=== PATIENT | male | born 1950 ===

== ENCOUNTER 2017-05-28 15:58 | Inpatient (IN) | payer MEDICARE, OTHER ==
[~2017-05-28] VITALS: Ht 172.7 cm; Wt 84.0 kg
[2017-05-28] MEDS ORDERED: RANI150C4 PO (16:24)
[2017-05-28] MEDS ORDERED: RISP1TAB27 PO (16:24)
[2017-05-28] MEDS ORDERED: BENZ0.5T3 PO (16:24)
[2017-05-28] MEDS ORDERED: ACET-2605 PO (16:24)
[2017-05-28] MEDS ORDERED: LACO100T2 PO (16:24)
[2017-05-28] MEDS ORDERED: GABA-532 PO (16:24)
[2017-05-28] MEDS ORDERED: LEVE500T20 PO (16:24)
[2017-05-28] MEDS ORDERED: TAMS0.4C34 PO (16:24)
[2017-05-28] MEDS ORDERED: ATEN50TA PO (16:24)
[2017-05-28] MEDS ORDERED: OMEP20TA5 PO (16:24)
[2017-05-28] MEDS ORDERED: DIPH1TAB PO (16:24)
[2017-05-28] MEDS ORDERED: DICY10CA59 PO (16:24)
[2017-05-28] MEDS ORDERED: BETH25TA PO (16:24)
--- NOTE | 2017-05-28 16:50 | NUR ---
Pt off the unit in stable condition to radiology and return to unit in stable condition as well.
--- NOTE | 2017-05-28 17:00 | NUR ---
Received Alert and confused to place and events at this time. 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 eye.
[2017-05-28 17:20] LABS: BASOPHILS # (AUTO) 0.1 K/uL (0.0-8.0); BASOPHILS % (AUTO) 0.5 % (0.0-2.0); EOSINOPHILS # (AUTO) 0.3 K/uL (0.0-0.7); EOSINOPHILS % (AUTO) 2.6 % (0.0-7.0); HEMATOCRIT 43.5 % (40-50); HEMOGLOBIN 14.9 G/DL (14.0-18.0); LYMPHOCYTES # (AUTO) 2.2 K/UL (0.8-4.8); LYMPHOCYTES % (AUTO) 21.2 % (20.5-51.5); MEAN CORPUSCULAR HEMOGLOBIN 31.7 UUG (27.0-31.0); MEAN CORPUSCULAR HGB CONC 34 g/dL (32.0-37.0); MEAN CORPUSCULAR VOLUME 92.5 FL (82.0-92.0); MONOCYTES # (AUTO) 1.4 K/UL (0.1-1.30); MONOCYTES % (AUTO) 13.3 % (0.0-11.0); NEUTROPHILS # (AUTO) 6.4 K/UL (1.8-8.9); NEUTROPHILS % (AUTO) 62.4 % (38.5-71.5); PLATELET COUNT (AUTO) 328 K/UL (150-450); WHITE BLOOD COUNT (AUTO) 10.4 K/UL (4.0-11.2)
[2017-05-28 17:22] LABS: CARBON DIOXIDE 28 mmol/L (21-32); CHLORIDE 94 mmol/L (98-107); CREATININE 0.7 mg/dL (0.6-1.3); GLUCOSE 102 mg/dL (74-106); POTASSIUM 3.8 mmol/L (3.5-5.1); UREA NITROGEN, BLOOD 8 mg/dL (7-18)
[2017-05-28 17:34] LABS: ETHANOL < 3 MG/DL (0-0)
[2017-05-28 17:37] LABS: ALANINE AMINOTRANSFERASE 32 U/L (16-63); ALKALINE PHOSPHATASE 91 U/L (50-136); ASPARTATE AMINOTRANSFERASE 18 U/L (15-37); BILIRUBIN,DIRECT 0.2 mg/dL (0.0-0.2); BILIRUBIN,TOTAL 0.6 mg/dL (0.2-1.0); TOTAL PROTEIN, SERUM 8.2 g/dL (6.4-8.2)
[2017-05-28 17:40] LABS: ACETAMINOPHEN < 2.0 ug/mL (10-30)
[2017-05-28 18:00] LABS: THYROID STIMULATING HORMONE 1.146 mIU/mL (0.358-3.740)
--- NOTE | 2017-05-28 18:40 | NUR ---
Dr. Deo Felipe returned ER MD call and admit orders received at this time to tele.
--- NOTE | 2017-05-28 19:53 | NUR ---
Pt. admitted to TELE, under care of Dr. ROTH Belongs List completed
--- NOTE | 2017-05-28 19:53 | NUR ---
Levar kaur in EDM - 05/28/17 at 2000 by XAVI Patient discharged to home in stable conditon. Written and verbal after care instructions given. Patient verbalizes understanding of instructions.
--- NOTE | 2017-05-28 20:00 | NUR ---
RECEIVED PATIENT FROM ER VIA GURNEY. PT IS ALERT, RESPONSIVE. ADMITTED TO TELE UNDER THE CARE OF DR. FORMAN. BELONGING LIST DONE, ADMISSION PROCESS AND CARE PLAN INITIATED. WILL NOTIFY MD FOR NEW ADMIT ORDERS.
[2017-05-28] MEDS ORDERED: ACETAMINOPHEN ES 500 MG TABLET PO PRN (21:15)
[2017-05-28] MEDS ORDERED: ACETAMINOPHEN ES 500 MG TABLET ONE (21:31)
[2017-05-28] MEDS ORDERED: GABAPENTIN 100 MG CAPSULE ONE (21:32)
[2017-05-28] MEDS ORDERED: LEVETIRACETAM 500 MG TABLET ONE (21:32)
[2017-05-28] MEDS: risperiDONE 1 MG TABLET PO SCH (21:33)
[2017-05-28] MEDS ORDERED: risperiDONE 1 MG TABLET ONE (21:33)
[2017-05-28] MEDS: GABAPENTIN 100 MG CAPSULE PO SCH (21:34)
[2017-05-28] MEDS: LEVETIRACETAM 500 MG TABLET PO SCH (21:34)
[2017-05-28 23:42] VITALS: BP 147/93
[2017-05-29 03:48] LABS: *BILIRUBIN,URIN NEGATIVE (NEGATIVE); *BLOOD, URINE NEGATIVE (NEGATIVE); *CLARITY,URINE CLEAR (CLEAR); *COLOR,URINE YELLOW (YELLOW); *KETONES,URINE NEGATIVE (NEGATIVE); *PROTEIN,URINE NEGATIVE (NEGATIVE); *UROBILINOGEN,URINE 0.2 E.U./dl (NORMAL); LEUKOCYTE ESTERASE ,URINE NEGATIVE (NEGATIVE); NITRITE, URINE NEGATIVE (NEGATIVE); UGLUCOSE NEGATIVE (NEGATIVE)
[2017-05-29 03:49] VITALS: BP 133/97
[2017-05-29 04:07] LABS: BACTERIA,URINE NONE SEEN /HPF (NONE SEEN); RBC,URINE NONE SEEN /HPF (0-3); SQUAMOUS EPITHELIAL CELL,UR NONE SEEN /HPF (NONE SEEN); WBC,URINE NONE SEEN /HPF (0-3)
[2017-05-29 04:12] LABS: *AMPHETAMINE, URINE NEGATIVE (NEGATIVE); *BARBITURATE, URINE NEGATIVE (NEGATIVE); *CANNABINOID, URINE NEGATIVE (NEGATIVE); *COCCAINE, URINE NEGATIVE (NEGATIVE); *OPIATE, URINE NEGATIVE (NEGATIVE); *PHENCYCLIDINE SCREEN,URINE NEGATIVE (NEGATIVE)
[2017-05-29 05:43] VITALS: BP 133/97
--- NOTE | 2017-05-29 06:17 | NUR ---
PATIENT SLEPT INTERMITTENTLY, IN NO ACUTE DISTRESS. PATIENT ABLE TO REMEMBER INSTRUCTION ON THE USE OF URINAL FOR URINE SPECIMEN. URINE SPECIMEN SENT TO LAB. ALL NEEDS MET, CALL LIGHT WITHIN REACH, BED ALARM ON. WILL CONTINUE TO MONITOR. Addendum: 05/29/17 at 0731 by ELIAS TORRES RN ADD: PT ON SEIZURE PRECAUTION, SIDE RAILS PADDED, SUCTION EQUIPMENT SET UP IN THE ROOM. PT IS ON [employer].
[2017-05-29 06:34] LABS: CARBON DIOXIDE 27 mmol/L (21-32); CHLORIDE 100 mmol/L (98-107); CREATININE 0.6 mg/dL (0.6-1.3); GLUCOSE 91 mg/dL (74-106); MAGNESIUM 1.8 mg/dL (1.8-2.4); PHOSPHOROUS 3.7 mg/dL (2.5-4.9); POTASSIUM 3.6 mmol/L (3.5-5.1); UREA NITROGEN, BLOOD 8 mg/dL (7-18)
[2017-05-29 06:54] LABS: BASOPHILS % (AUTO) 0.5 % (0.0-2.0); EOSINOPHILS # (AUTO) 0.3 K/uL (0.0-0.7); EOSINOPHILS % (AUTO) 3.8 % (0.0-7.0); HEMATOCRIT 39.1 % (36.7-47.1); HEMOGLOBIN 13.7 g/dL (12.5-16.3); LYMPHOCYTES # (AUTO) 2.4 K/uL (20.0-40.0); LYMPHOCYTES % (AUTO) 28.8 % (20.5-51.5); MEAN CORPUSCULAR HEMOGLOBIN 32.8 uug (23.8-33.4); MEAN CORPUSCULAR HGB CONC 35 g/dL (32.5-36.3); MEAN CORPUSCULAR VOLUME 93.9 fL (73.0-96.2); MONOCYTES % (AUTO) 12.3 % (0.0-11.0); NEUTROPHILS # (AUTO) 4.5 K/uL (1.8-8.9); NEUTROPHILS % (AUTO) 54.6 % (38.5-71.5); PLATELET COUNT (AUTO) 256 K/uL (152-348); RED BLOOD CELL COUNT(AUTO) 4.17 MIL/uL (4.06-5.63); WHITE BLOOD COUNT (AUTO) 8.3 K/uL (3.6-10.2)
--- NOTE | 2017-05-29 07:15 | NUR ---
received report from [facility] shift lead nurse, patient in bed awake and appears to be anxious as evidenced by frequent questions and repetitive reports of his Doctor's information including phone number.
[2017-05-29] MEDS ORDERED: ACETAMINOPHEN ES 500 MG TABLET PO PRN (07:30)
[2017-05-29] MEDS ORDERED: DICYCLOMINE HCL 10 MG CAPSULE PO PRN (07:30)
[2017-05-29] MEDS ORDERED: DIPHENOXYLATE HCL/ATROP SULF TABLET PO PRN (07:30)
[2017-05-29] MEDS ORDERED: HOME MED MISCELLANEOUS XX SCH ×2 (07:30)
[2017-05-29] MEDS: PANTOPRAZOLE SODIUM 40 MG TABLET.DR PO SCH (07:45)
[2017-05-29] MEDS: GABAPENTIN 100 MG CAPSULE PO SCH ×2 (08:25→17:03)
[2017-05-29] MEDS: TAMSULOSIN HCL 0.4 MG CAP.SR.24H PO SCH (08:25)
[2017-05-29] MEDS: ATENOLOL 50 MG TABLET PO SCH (08:26)
[2017-05-29] MEDS: BETHANECHOL CHLORIDE 25 MG TABLET PO SCH ×3 (08:26→17:03)
[2017-05-29] MEDS: LACOSAMIDE 50 MG TABLET PO SCH ×2 (08:27→20:03)
[2017-05-29] MEDS: LEVETIRACETAM 500 MG TABLET PO SCH ×2 (08:27→20:03)
[2017-05-29] MEDS: Z GUARD REMEDY PASTE 57 GM TUBE TOP SCH ×2 (08:27→20:04)
[2017-05-29] MEDS ORDERED: GABAPENTIN 100 MG CAPSULE PO SCH (09:00)
[2017-05-29] MEDS ORDERED: LEVETIRACETAM 500 MG TABLET PO SCH (09:00)
[2017-05-29 11:42] VITALS: BP 148/90
[2017-05-29 15:15] VITALS: BP 149/89
--- NOTE | 2017-05-29 18:38 | NUR ---
Patient has been cooperative with therapy today after all questions are answered. Patient continues to repeat questions and appears to be paranoid about not getting Keppra multiple times a day. All medication education provided to patient during administration. Bed in low position, side rails up x2, bed alarm on.
--- NOTE | 2017-05-29 19:15 | NUR ---
PATIENT FOUND WITH LEFT INDEX FINGERNAIL/NAIL BED INJURY WITH MINIMAL DRIED BLOOD. PATIENT IS NOTED WITH LONG, UNTRIMMED AND UNCLEAN FINGERNAILS. ASKED PATIENT WHAT HAPPENED, PATIENT STATED "I DON'T KNOW, I WOKE UP LIKE THIS (SHOWING HIS INDEX FINGER), I HAVE AN INFECTION, IT'S CALLED PARONYCHIA". PATIENT FREQUENTLY USES MEDICAL TERMS. RN CLEANSED LEFT INDEX FINGER WITH NORMAL SALINE AND APPLIED BANDAGE. PATIENT TEACHING PROVIDED TO PATIENT ON CLEAN HANDS/FINGERS AND SAFETY. PHOTO TAKEN AND PLACED IN THE CHART. WILL CONTINUE TO MONITOR.
[2017-05-29] MEDS: risperiDONE 1 MG TABLET PO SCH (20:03)
[2017-05-29] MEDS: BENZTROPINE MESYLATE 0.5 MG TABLET PO SCH (20:03)
--- NOTE | 2017-05-29 20:05 | NUR ---
PATIENT FOUND LAYING IN BED NAKED WITH CLOTHING, DIAPER, BEDSHEETS ON THE FLOOR. PATIENT REFUSED TO BE CLOTHED AND COVERED WITH BLANKET, PATIENT ASKED RN IN A CHALLENGING MANNER WHY HE NEEDS TO BE COVERED WHEN HE IS NOT WALKING AROUND. DISCUSSED WITH PATIENT TO USE GOWN FOR SAFETY AND PRIVACY, PATIENT VERBALIZED UNDERSTANDING AND COOPERATED TO PUT GOWN ON. MEDICATION ADMINISTERED ORDERED. ALL NEEDS MET. CALL LIGHT WITHIN REACH, BED ALARM ON. WILL CONTINUE TO MONITOR.
[2017-05-29 20:51] VITALS: BP 107/71
[2017-05-29] MEDS ORDERED: risperiDONE 1 MG TABLET PO SCH (21:00)
[2017-05-30 05:48] VITALS: BP 138/89
[2017-05-30] MEDS: PANTOPRAZOLE SODIUM 40 MG TABLET.DR PO SCH (06:05)
--- NOTE | 2017-05-30 06:22 | NUR ---
PATIENT SLEPT INTERMITTENTLY, IN NO ACUTE DISTRESS. PATIENT KEPT CLEAN/DRY. NO SIGNIFICANT CHANGE OF CONDITION THROUGHOUT THE SHIFT. SAFETY MEASURES IN PLACE. WILL ENDORSE TO ONCOMING RN.
--- NOTE | 2017-05-30 07:15 | NUR ---
RECEIVED REPORT FROM HOOKER UP NURSE, PATIENT IN BED AWAKE NO EVIDENCE OF DISTRESS NOTED, BED IN LOW POSITION, SIDE RAILS UP X2,.
[2017-05-30 07:37] LABS: EOSINOPHILS # (AUTO) 0.1 K/uL (0.0-0.7); EOSINOPHILS % (AUTO) 0.8 % (0.0-7.0); HEMATOCRIT 45.4 % (40-50); HEMOGLOBIN 15.4 G/DL (14.0-18.0); LYMPHOCYTES # (AUTO) 1.8 K/UL (0.8-4.8); LYMPHOCYTES % (AUTO) 13.6 % (20.5-51.5); MEAN CORPUSCULAR HEMOGLOBIN 31.8 UUG (27.0-31.0); MEAN CORPUSCULAR HGB CONC 34 g/dL (32.0-37.0); MEAN CORPUSCULAR VOLUME 93.6 FL (82.0-92.0); MONOCYTES # (AUTO) 1.7 K/UL (0.1-1.30); MONOCYTES % (AUTO) 12.6 % (0.0-11.0); NEUTROPHILS # (AUTO) 9.8 K/UL (1.8-8.9); PLATELET COUNT (AUTO) 275 K/UL (150-450); RED BLOOD CELL COUNT(AUTO) 4.85 MIL/UL (4.7-6.1); WHITE BLOOD COUNT (AUTO) 13.4 K/UL (4.0-11.2)
[2017-05-30 07:47] LABS: CREATININE 0.7 mg/dL (0.6-1.3); MAGNESIUM 2.1 mg/dL (1.8-2.4); PHOSPHOROUS 3.2 mg/dL (2.5-4.9); POTASSIUM 3.5 mmol/L (3.5-5.1)
[2017-05-30] MEDS: Z GUARD REMEDY PASTE 57 GM TUBE TOP SCH ×2 (09:00→20:00)
[2017-05-30] MEDS: LEVETIRACETAM 500 MG TABLET PO SCH ×2 (10:05→20:00)
[2017-05-30] MEDS: LACOSAMIDE 50 MG TABLET PO SCH ×2 (10:05→20:00)
[2017-05-30] MEDS: TAMSULOSIN HCL 0.4 MG CAP.SR.24H PO SCH (10:06)
[2017-05-30] MEDS: BETHANECHOL CHLORIDE 25 MG TABLET PO SCH ×3 (10:06→16:55)
[2017-05-30] MEDS: GABAPENTIN 100 MG CAPSULE PO SCH ×2 (10:06→16:54)
[2017-05-30] MEDS: ATENOLOL 50 MG TABLET PO SCH (10:07)
[2017-05-30 11:40] VITALS: BP 157/97
[2017-05-30 15:15] VITALS: BP 121/83
--- NOTE | 2017-05-30 18:36 | NUR ---
PATIENT HAS BEEN COOPERATIVE WITH CARE, BUT PARANOID AT THE SAME TIME. QUESTIONS ALL ACTIONS AND DOCTOR'S ORDERS. PATIENT HAS BEEN REPOSITIONED BUT, PATIENT TURNS ON BACK AND REFUSES TO LAY ON SIDE. SOME MILD REDNESS SEEN ON BACKSIDE, PROTECTIVE MEASURES TAKEN.
[2017-05-30 20:00] VITALS: BP 130/91
[2017-05-30] MEDS: BENZTROPINE MESYLATE 0.5 MG TABLET PO SCH (20:00)
[2017-05-30] MEDS: risperiDONE 1 MG TABLET PO SCH (20:00)
[2017-05-31 04:00] VITALS: BP 124/87
--- NOTE | 2017-05-31 06:00 | NUR ---
PT SLEPT INTERMITTENTLY, IN NO ACUTE DISTRESS. NO SIGNIFICANT CHANGE OF CONDITION THROUGHOUT THE SHIFT. MEDS DUE GIVEN, ALL NEEDS MET. SEIZURE PRECAUTION, SAFETY MEASURES IN PLACE. WILL CONTINUE TO MONITOR AND ENDORSE TO THE ONCOMING SHIFT RN.
[2017-05-31] MEDS: PANTOPRAZOLE SODIUM 40 MG TABLET.DR PO SCH (06:22)
--- NOTE | 2017-05-31 08:05 | NUR ---
Pt report received from shot hole shooter. Board updated. Pt assessed, reports no pain. All comfort and safety measures met at this time. Seizure precautions in place and call light with in reach. Will continue to monitor.
[2017-05-31] MEDS ORDERED: LEVE500T9 PO (08:54)
[2017-05-31] MEDS ORDERED: GABA-532 PO (08:54)
[2017-05-31] MEDS ORDERED: PANT40TA2 PO (08:54)
[2017-05-31] MEDS ORDERED: RISP1TAB7 PO (08:54)
[2017-05-31] MEDS ORDERED: MENT71OI TOP (08:54)
[2017-05-31] MEDS: TAMSULOSIN HCL 0.4 MG CAP.SR.24H PO SCH (08:55)
[2017-05-31] MEDS: LACOSAMIDE 50 MG TABLET PO SCH (08:55)
[2017-05-31] MEDS: BETHANECHOL CHLORIDE 25 MG TABLET PO SCH (08:55)
[2017-05-31] MEDS: GABAPENTIN 100 MG CAPSULE PO SCH (08:55)
[2017-05-31] MEDS: Z GUARD REMEDY PASTE 57 GM TUBE TOP SCH (08:58)
[2017-05-31] MEDS: ATENOLOL 50 MG TABLET PO SCH (09:02)
[2017-05-31] MEDS: LEVETIRACETAM 500 MG TABLET PO SCH (09:20)
[2017-05-31 11:20] VITALS: BP 133/94
--- NOTE | 2017-05-31 14:18 | NUR ---
Pt assessed, no acute distress noted. D/C plan discussed, follow up appointment discussed, Pt education material reviewed and Pt verbalized understanding. Personal belongings accounted for and Pt assisted to changed clothes. D/C from tele monitor SR. IV removed and intact. V/S WNL. Report given to Khanh about transfer, ambulance registered radiation therapist safely assisted Pt to [facility]. Pt accompanied out of hospital.
== END 2017-05-31 14:15 | DRG 640 ==
LOC: ER 15:59 → MED 19:51 → TELE 20:17 → MED 05-29 11:21
PROVIDERS: ADMIT Internal Medicine; ATTEND Internal Medicine
DX: E87.1 Hypo-osmolality and hyponatremia (principal); G93.41 Metabolic encephalopathy; F20.0 Paranoid schizophrenia; E86.0 Dehydration; E86.1 Hypovolemia; K21.9 Gastro-esophageal reflux disease without esophagitis; Z79.899 Other long term (current) drug therapy; Z88.0 Allergy status to penicillin; I10 Essential (primary) hypertension; N40.0 Benign prostatic hyperplasia without lower urinary tract symptoms; G40.901 Epilepsy, unspecified, not intractable, with status epilepticus; F99 Mental disorder, not otherwise specified; Z91.81 History of falling
CPT/HCPCS: 36415; 70030-TC; 70450; 71010; 72125; 80299; 80307; 83605; 83735; 84100; 84443; 85025; 85730; 87040; 87086; 93005; 93307; A4663; G0480; G0480-TC